=== PATIENT | female | born 1940 | race Two or more races ===

== ENCOUNTER → 2022-12-18 | Emergency (ER) | payer OTHER ==
[~2022-12-18] VITALS: Ht 152.4 cm; Wt 63.5 kg
[~2022-12-18] MED LIST: ASA81 MG PO; CIPRO250 MG; COZAAR50 MG PO; SYNTHROID50 MCG PO
== END | disposition home or self-care (01) ==
LOC: ER 10:15
DX: M79.605 Pain in left leg (principal); M25.562 Pain in left knee; I87.2 Venous insufficiency (chronic) (peripheral); I10 Essential (primary) hypertension; E03.9 Hypothyroidism, unspecified; Z88.8 Allergy status to other drugs, medicaments and biological substances